=== PATIENT | female | born 1945 | race Two or more races ===

== ENCOUNTER 2018-04-10 10:00 | Inpatient (IN) | payer OTHER ==
[~2018-04-10] VITALS: Ht 152.4 cm; Wt 49.9 kg
[2018-04-10] MEDS ORDERED: PROTONIX20 MG PO (16:12)
[2018-04-10] MEDS ORDERED: HYZAAR 50-12.51 EACH PO (16:12)
[2018-04-17] MEDS ORDERED: GABAPENTIN800 MG PO (13:05)
[2018-04-17] MEDS ORDERED: AMOX-CLAV 875-1 EACH PO (13:06)
[2018-04-17] MEDS ORDERED: DOCUSATE SODIU100 MG PO (13:06)
[2018-04-17] MEDS ORDERED: CLONAZEPAM0.5 M1 PO (13:08)
[2018-04-17] MEDS ORDERED: PERCOCET 5-3251 EACH PO (13:08)
[2018-04-17] MEDS ORDERED: ACETAMINOPHEN-1 EAC2 PO (13:30)
== END 2018-04-18 17:33 | disposition home or self-care (01) | DRG 460 ==
LOC: CIR.AMB 10:00 → EDSTATUS 10:00 → ADM 10:00 → SURG 04-17 05:34 → O/R 04-17 05:34 → SURH 04-17 09:45 → SURG 04-17 16:13
PROVIDERS: ADMIT Orthopaedic Surgery Orthopaedic Surgery of the Spine
PROC: 0SG00AJ Fusion of Lumbar Vertebral Joint with Interbody Fusion Device, Posterior Approach, Anterior Column, Open Approach (ICD-10-PCS; 2018-04-17)
PROC: 0ST20ZZ Resection of Lumbar Vertebral Disc, Open Approach (ICD-10-PCS; 2018-04-17)
PROC: 07DS3ZZ Extraction of Vertebral Bone Marrow, Percutaneous Approach (ICD-10-PCS; 2018-04-17)
PROC: 0SG00A0 Fusion of Lumbar Vertebral Joint with Interbody Fusion Device, Anterior Approach, Anterior Column, Open Approach (ICD-10-PCS; principal; 2018-04-17 09:45)
DX: M43.16 Spondylolisthesis, lumbar region (principal); M48.062 Spinal stenosis, lumbar region with neurogenic claudication; I10 Essential (primary) hypertension

== ENCOUNTER 2018-06-30 12:36 | Outpatient (CLI) | payer OTHER ==
[~2018-06-30 12:36] MED LIST: ACETAMINOPHEN-1 EAC2 PO; AMOX-CLAV 875-1 EACH PO; CLONAZEPAM0.5 M1 PO; DOCUSATE SODIU100 MG PO; GABAPENTIN800 MG PO; HYZAAR 50-12.51 EACH PO; PERCOCET 5-3251 EACH PO; PROTONIX20 MG PO
== END 2018-06-30 15:14 | disposition home or self-care (01) ==
LOC: RAD 12:36
DX: M51.36 Other intervertebral disc degeneration, lumbar region (principal); Z98.1 Arthrodesis status

== ENCOUNTER 2022-08-17 08:54 | Inpatient (IN) | payer OTHER ==
[~2022-08-17] VITALS: Ht 152.4 cm; Wt 49.4 kg
[2022-08-17] MEDS ORDERED: ATACAND4 MG PO (14:12)
[2022-08-23] MEDS ORDERED: ACETAMINOPHEN-1 EAC2 PO (07:47)
[2022-08-23] MEDS ORDERED: MEDROLPACK PO (07:47)
[2022-08-23] MEDS ORDERED: COLACE100 MG PO (07:47)
[2022-08-23] MEDS ORDERED: ZOFRAN8 MG PO (07:55)
== END 2022-08-24 11:44 | disposition home or self-care (01) | DRG 473 ==
LOC: O/R 08-23 06:20 → SURH 08-23 10:15 → PED 08-23 12:56
PROVIDERS: ADMIT Orthopaedic Surgery Orthopaedic Surgery of the Spine; ATTEND Orthopaedic Surgery Orthopaedic Surgery of the Spine
PROC: 0RT30ZZ Resection of Cervical Vertebral Disc, Open Approach (ICD-10-PCS; 2022-08-23)
PROC: 07DS0ZZ Extraction of Vertebral Bone Marrow, Open Approach (ICD-10-PCS; 2022-08-23)
PROC: 0RG20A0 Fusion of 2 or more Cervical Vertebral Joints with Interbody Fusion Device, Anterior Approach, Anterior Column, Open Approach (ICD-10-PCS; principal; 2022-08-23 10:15)
DX: M50.021 Cervical disc disorder at C4-C5 level with myelopathy (principal); M48.02 Spinal stenosis, cervical region; I10 Essential (primary) hypertension; M19.90 Unspecified osteoarthritis, unspecified site